=== PATIENT | male | born 1975 | race Caucasian/White ===

== ENCOUNTER 2024-07-15 12:05 | Emergency (ER) | payer OTHER ==
[~2024-07-15] VITALS: Ht 180.3 cm; Wt 125.1 kg
[2024-07-15 15:41] LABS: BASOPHILS # (AUTO) 0.1 X10'3 (0-0.2); BASOPHILS % (AUTO) 0.6 % (0-1); EOSINOPHILS # (AUTO) 0.2 X10'3 (0-0.9); EOSINOPHILS % (AUTO) 1.6 % (0-6); HEMATOCRIT 48.1 % (42.0-52.0); HEMOGLOBIN 16.1 g/dl (14.0-17.9); LYMPHOCYTES % (AUTO) 19.2 % (21-51); MEAN CORPUSCULAR HEMOGLOBIN 29.7 PG (27.0-31.0); MEAN CORPUSCULAR HGB CONC 33.6 g/dL (33.0-36.5); MEAN CORPUSCULAR VOLUME 88.3 FL (78-98); MEAN PLATELET VOLUME 9.8 FL (7.4-10.4); MONOCYTES # (AUTO) 0.8 X10'3 (0-0.9); MONOCYTES % (AUTO) 7.7 % (2-12); NEUTROPHILS # (AUTO) 7.5 X10'3 (1.8-7.7); NEUTROPHILS % (AUTO) 70.9 % (42-75); PLATELET COUNT 266 X10'3 (140-440); RED BLOOD COUNT 5.44 X10'6 (4.70-6.10); RED CELL DISTRIBUTION WIDTH 13.2 % (11.5-14.5); WHITE BLOOD COUNT 10.6 X10'3 (4.5-11.0)
[2024-07-15 15:48] LABS: ALBUMIN 3.8 G/DL (3.4-5.0); ANION GAP 11 (8-16); BLOOD UREA NITROGEN 9 MG/DL (7-18); BUN/CREATININE RATIO 10.7 (10.0-20.0); CALCIUM 8.7 MG/DL (8.5-10.1); CHLORIDE 105 MMOL/L (99-107); CREATININE 0.84 MG/DL (0.60-1.10); GLUCOSE 85 MG/DL (70-104); SODIUM 142 MMOL/L (135-145); TOTAL CARBON DIOXIDE 26.1 MMOL/L (24-32); eCRCL 116 ML/MIN; eGFR > 90 ML/MIN
[2024-07-15] MEDS: sulfamethoxazole/trimethoprim DS (800/160mg) tablet PO ONE (15:48)
[2024-07-15] MEDS: cephalexin 500mg capsule PO ONE (15:49)
[2024-07-15] MEDS ORDERED: SULF1TAB45 PO (15:56)
[2024-07-15] MEDS ORDERED: CEPH-585 PO (15:56)
[2024-07-15 15:58] VITALS: BP 120/79; PULSE 82; RESP 14; O2SAT 98
[2024-07-15 16:03] VITALS: TEMP 98.6
== END 2024-07-15 16:09 | disposition home or self-care (01) ==
LOC: ER 12:06
DX: L03.116 Cellulitis of left lower limb (principal); Z79.2 Long term (current) use of antibiotics
CPT/HCPCS: 36415; 80048; 83605; 84145; 85025; 87040; 99283